=== PATIENT | male | born 1980 | race Caucasian/White ===

== ENCOUNTER 2025-01-09 18:09 | Inpatient (IN) | payer SELFPAY ==
[~2025-01-09] VITALS: Ht 165.1 cm; Wt 169.5 kg
[2025-01-09 19:04] LABS: BASOPHILS % (AUTO) 0.3 % (0.0-2.0); EOSINOPHILS % (AUTO) 0.6 % (1.0-6.0); HEMATOCRIT 46.5 % (41-53); HEMOGLOBIN 14.1 g/dL (13.5-17.5); LYMPHOCYTES # (AUTO) 1.6 K/uL (1.0-4.8); MEAN CORPUSCULAR HEMOGLOBIN 22.9 pg (26.0-34.0); MEAN CORPUSCULAR HGB CONC 30.4 G/dL (31.0-37.0); MEAN CORPUSCULAR VOLUME 76 fL (80-100); MONOCYTES # (AUTO) 0.8 K/uL (0.1-1.0); MONOCYTES % (AUTO) 8.5 % (2.0-9.0); NEUTROPHILS # (AUTO) 7.1 K/uL (1.8-7.7); NEUTROPHILS % (AUTO) 73.6 % (40.0-70.0); PLATELET COUNT (AUTO) 251 K/uL (150-450); RED BLOOD CELL COUNT(AUTO) 6.16 MIL/uL (4.50-5.90); RED CELL DISTRIBUTION WIDTH 17.5 % (11.5-14.5); WHITE BLOOD COUNT (AUTO) 9.6 K/uL (4.5-11.0)
[2025-01-09 19:12] LABS: CALCIUM, TOTAL 8.3 mg/dL (8.8-10.5); CARBON DIOXIDE 39 mmol/L (22-29); CHLORIDE 101 mmol/L (98-107); CREATININE 0.79 mg/dL (0.60-1.30); GLOMERULAR FILTR. RATE CALC > 60 mL/min (>60); GLUCOSE,RANDOM 83 mg/dL (70-110); POTASSIUM 3.9 mmol/L (3.5-5.1); SODIUM SERUM 137 mmol/L (136-145); UREA NITROGEN, BLOOD 15 mg/dL (7-18)
[2025-01-09 19:16] LABS: ALBUMIN 2.6 g/dL (3.4-5.0); ANION GAP 0 mmol/L (8-16); BILIRUBIN,DIRECT 0.3 mg/dL (0.00-0.20); BILIRUBIN,TOTAL 0.7 mg/dL (0.1-1.0); D-DIMER 0.58 mg/L FEU (0.00-0.50); PROTHROMBIN TIME 11.8 SEC (9.4-11.6); TOTAL PROTEIN, SERUM 7.9 g/dL (6.4-8.2)
[2025-01-09 19:21] LABS: TROPONIN I-HIGH SENSITIVITY 16 ng/L (<76)
[2025-01-09 19:22] LABS: PLATELET MORPHOLOGY COMMENT LARGE PLTS PRESENT; RBC MORPHOLOGY COMMENT ABNORMAL RBC MORPH
[2025-01-09] MEDS ORDERED: 0.9% SODIUM CHLORIDE 10 ML SYRINGE IVP ONE (19:51)
[2025-01-09] MEDS ORDERED: IOHEXOL 350 MG/ML 100 ML VIAL ONE (19:51)
[2025-01-09] MEDS ORDERED: SODIUM CHLORIDE 0.9% 100 ML ONE (19:51)
[2025-01-09 20:38] LABS: ABG BASE EXCESS 11.3 mmol/L (-2.0-3.0); ABG HCO3 31.1 mmol/L (21.0-28.0); ABG METHEMOGLOBIN 0.4 % (0.0-1.5); ABG OXYGEN CONTENT 19.9 mL/dL (15.0-23.0); ABG OXYGEN SATURATION 96.2 % (94.0-98.0); ABG OXYHEMOGLOBIN 93.9 % (94.0-98.0); PO2, ARTERIAL BG 93.9 mmHg (83.0-108.0); SOURCE, BLOOD GAS ARTERIAL
[2025-01-09 20:39] LABS: ABG PCO2 90 mmHg (32.0-48.0); ALLEN TEST, BLOOD GAS POS; SITE, BLOOD GAS RT RADIAL
[2025-01-09 20:40] LABS: O2 DEVICE,BLOOD GAS CANNULA (ROOM AIR)
[2025-01-09 20:45] VITALS: PULSE 88; RESP 22; O2SAT 97
[2025-01-09] MEDS: MethylPREDNISolone SOD SUCC 125 MG/2 ML VIAL IVP ONE (20:47)
[2025-01-09] MEDS: IPRATROPIUM BROMIDE 0.5 MG/2.5 ML NEB SOLUTION NEB ONE (21:22)
[2025-01-09] MEDS: ALBUTEROL SULFATE 2.5 MG/0.5 ML NEB SOLUTION NEB ONE (21:22)
[2025-01-09] MEDS: CefTRIAXone 1 GM/DEXTROSE 50 ML IV ONE (21:22)
[2025-01-09] MEDS: AZITHROMYCIN 500 MG/NS 250 ML IV ONE (21:22)
[2025-01-09 21:25] VITALS: PULSE 88; RESP 22; O2SAT 97
[2025-01-09] MEDS ORDERED: ONDANSETRON HCL 4 MG/2 ML VIAL IVP PRN (21:30)
[2025-01-09] MEDS ORDERED: ACETAMINOPHEN 325 MG TABLET PO PRN (21:30)
[2025-01-09] MEDS ORDERED: MORPHINE SULFATE 2 MG/ML SYRINGE IVP PRN (21:30)
[2025-01-09] MEDS ORDERED: ALBUTEROL SULFATE 2.5 MG/0.5 ML NEB SOLUTION NEB PRN (21:30)
[2025-01-09] MEDS ORDERED: IPRATROPIUM BROMIDE 0.5 MG/2.5 ML NEB SOLUTION NEB PRN (21:30)
[2025-01-09] MEDS ORDERED: MAGNESIUM HYDROXIDE SUSPENSION 30 ML UDCUP PO PRN (21:30)
[2025-01-09] MEDS ORDERED: BISACODYL 10 MG RECTAL RECTAL SUPPOSITORY PR PRN (21:30)
[2025-01-09] MEDS ORDERED: HYDROCODONE/ACETAMINOPHEN 5-325 MG TABLET PO PRN (21:30)
[2025-01-09] MEDS ORDERED: ZOLPIDEM TARTRATE 5 MG TABLET PO PRN (21:30)
[2025-01-09 21:40] VITALS: PULSE 91; RESP 22; O2SAT 98
[2025-01-09 21:40] LABS: APPEARANCE,URINE CLEAR (CLEAR); BILIRUBIN,URINE NEGATIVE (NEGATIVE); COLOR,URINE LIGHT YELLOW (YELLOW); GLUCOSE, URINE (UA) NEGATIVE (NEGATIVE); KETONES,URINE NEGATIVE (NEGATIVE); LEUKOCYTE ESTERASE ,URINE NEGATIVE (NEGATIVE); NITRATE,URINE NEGATIVE (NEGATIVE); OCCULT BLOOD,URINE NEGATIVE (NEGATIVE); PROTEIN,URINE NEGATIVE (NEGATIVE); UROBILINOGEN,URINE <=1.0 mg/dL (<=1.0)
[2025-01-09 23:32] VITALS: BP 154/103; PULSE 86; RESP 23; TEMP 97.7; O2SAT 93
[2025-01-10] VITALS (15 sets, daily range): BP systolic 95–158; BP diastolic 40–104; PULSE 72–103; RESP 17–32; TEMP 97.3–98.8; O2SAT 93–99
[2025-01-10] MEDS: HEPARIN SODIUM,PORCINE 5,000 UNITS/ML VIAL SQ SCH (01:26)
[2025-01-10] MEDS: MethylPREDNISolone SOD SUCC 125 MG/2 ML VIAL IVP SCH ×2 (01:26→17:40)
[2025-01-10] MEDS: IPRATROPIUM BROMIDE 0.5 MG/2.5 ML NEB SOLUTION NEB SCH (03:03)
[2025-01-10] MEDS: ALBUTEROL SULFATE 2.5 MG/0.5 ML NEB SOLUTION NEB SCH (03:04)
[2025-01-10 06:32] LABS: BASOPHILS % (AUTO) 0.1 % (0.0-2.0); EOSINOPHILS % (AUTO) 0 % (1.0-6.0); HEMATOCRIT 48.5 % (41-53); HEMOGLOBIN 14.5 g/dL (13.5-17.5); LYMPHOCYTES # (AUTO) 0.5 K/uL (1.0-4.8); LYMPHOCYTES % (AUTO) 5.4 % (22.0-44.0); MEAN CORPUSCULAR HEMOGLOBIN 23.1 pg (26.0-34.0); MEAN CORPUSCULAR VOLUME 77 fL (80-100); MONOCYTES # (AUTO) 0.1 K/uL (0.1-1.0); NEUTROPHILS # (AUTO) 8.7 K/uL (1.8-7.7); PLATELET COUNT (AUTO) 253 K/uL (150-450); RED BLOOD CELL COUNT(AUTO) 6.29 MIL/uL (4.50-5.90); RED CELL DISTRIBUTION WIDTH 17.8 % (11.5-14.5); WHITE BLOOD COUNT (AUTO) 9.3 K/uL (4.5-11.0)
[2025-01-10 06:59] LABS: ANION GAP 1 mmol/L (8-16); CALCIUM, TOTAL 8.4 mg/dL (8.8-10.5); CARBON DIOXIDE 37 mmol/L (22-29); CHLORIDE 102 mmol/L (98-107); CREATININE 0.93 mg/dL (0.60-1.30); GLOMERULAR FILTR. RATE CALC > 60 mL/min (>60); GLUCOSE,RANDOM 150 mg/dL (70-110); POTASSIUM 4.8 mmol/L (3.5-5.1); SODIUM SERUM 140 mmol/L (136-145); UREA NITROGEN, BLOOD 13 mg/dL (7-18)
[2025-01-10 07:01] LABS: NEUTROPHILS % (AUTO) 93.5 % (40.0-70.0)
[2025-01-10 08:12] LABS: RBC MORPHOLOGY COMMENT ABNORMAL RBC MORPH
[2025-01-10] MEDS: DOCUSATE SODIUM 100 MG CAPSULE PO SCH (09:00)
[2025-01-10] MEDS: BENZONATATE 100 MG CAPSULE PO SCH (09:10)
[2025-01-10] MEDS: PANTOPRAZOLE SODIUM 40 MG DR TABLET PO SCH (09:11)
[2025-01-10] MEDS: GuaiFENesin SR 600 MG ER TABLET PO SCH (09:11)
[2025-01-11] VITALS (13 sets, daily range): BP systolic 109–147; BP diastolic 61–91; PULSE 77–101; RESP 18–25; TEMP 97.3–98.1; O2SAT 85–100
[2025-01-12 02:18] VITALS: PULSE 92; RESP 20; O2SAT 96
[2025-01-12 02:33] VITALS: PULSE 93; RESP 20; O2SAT 96
[2025-01-12 04:12] VITALS: BP 122/76; PULSE 68; RESP 19; TEMP 97.2; O2SAT 94
[2025-01-12 06:45] LABS: ANION GAP 1 mmol/L (8-16); CALCIUM, TOTAL 8.3 mg/dL (8.8-10.5); CARBON DIOXIDE 39 mmol/L (22-29); CHLORIDE 102 mmol/L (98-107); CREATININE 0.75 mg/dL (0.60-1.30); GLOMERULAR FILTR. RATE CALC > 60 mL/min (>60); GLUCOSE,RANDOM 144 mg/dL (70-110); POTASSIUM 4.2 mmol/L (3.5-5.1); SODIUM SERUM 142 mmol/L (136-145); UREA NITROGEN, BLOOD 17 mg/dL (7-18)
[2025-01-12 07:00] VITALS: PULSE 86; RESP 20; O2SAT 94
[2025-01-12 07:04] LABS: BASOPHILS % (AUTO) 0.1 % (0.0-2.0); EOSINOPHILS % (AUTO) 0 % (1.0-6.0); HEMATOCRIT 48.2 % (41-53); HEMOGLOBIN 14.6 g/dL (13.5-17.5); LYMPHOCYTES # (AUTO) 0.6 K/uL (1.0-4.8); LYMPHOCYTES % (AUTO) 4.6 % (22.0-44.0); MEAN CORPUSCULAR HEMOGLOBIN 22.9 pg (26.0-34.0); MEAN CORPUSCULAR HGB CONC 30.3 G/dL (31.0-37.0); MEAN CORPUSCULAR VOLUME 76 fL (80-100); MONOCYTES # (AUTO) 0.5 K/uL (0.1-1.0); MONOCYTES % (AUTO) 3.7 % (2.0-9.0); NEUTROPHILS # (AUTO) 11.2 K/uL (1.8-7.7); PLATELET COUNT (AUTO) 243 K/uL (150-450); RED BLOOD CELL COUNT(AUTO) 6.36 MIL/uL (4.50-5.90); RED CELL DISTRIBUTION WIDTH 17.6 % (11.5-14.5); WHITE BLOOD COUNT (AUTO) 12.3 K/uL (4.5-11.0)
[2025-01-12 07:07] LABS: NEUTROPHILS % (AUTO) 91.6 % (40.0-70.0)
[2025-01-12 07:08] LABS: RBC MORPHOLOGY COMMENT ABNORMAL RBC MORPH
[2025-01-12 08:00] VITALS: BP 139/85; PULSE 110; PULSE 81; RESP 18; RESP 20; TEMP 97.8; O2SAT 94; O2SAT 96
[2025-01-12] MEDS ORDERED: ALBU18HF12 IH (10:54)
[2025-01-12] MEDS ORDERED: PRED-554 PO (10:54)
[2025-01-12 12:00] VITALS: BP 141/74; PULSE 88; RESP 20; TEMP 97.9; O2SAT 89
== END 2025-01-12 14:00 | disposition home or self-care (01) | DRG 189 ==
LOC: EMS 18:13 → EDH 21:30 → 5S 23:19
PROVIDERS: ADMIT Internal Medicine; ATTEND Internal Medicine
PROC: 5A09357 Assistance with Respiratory Ventilation, Less than 24 Consecutive Hours, Continuous Positive Airway Pressure (ICD-10-PCS; principal; 2025-01-10)
PROC: 5A0935A Assistance with Respiratory Ventilation, Less than 24 Consecutive Hours, High Flow/Velocity Cannula (ICD-10-PCS; 2025-01-10)
PROC: 5A09357 Assistance with Respiratory Ventilation, Less than 24 Consecutive Hours, Continuous Positive Airway Pressure (ICD-10-PCS; 2025-01-11)
DX: J96.22 Acute and chronic respiratory failure with hypercapnia (principal); E87.29 Other acidosis; Z68.44 Body mass index [BMI] 60.0-69.9, adult; E66.2 Morbid (severe) obesity with alveolar hypoventilation; J44.9 Chronic obstructive pulmonary disease, unspecified; I10 Essential (primary) hypertension
CPT/HCPCS: 71045; 71275; 80048; 80076; 81003; 82550; 82805; 83880; 84484; 85025; 85379; 85610; 85730; 87040; 93005; 94060; 94640; 94660; 99291; J0456; J0696; J1644; J2919; J7050; 36415-L1; 36415-TC; J7613

== ENCOUNTER 2025-01-14 13:05 | Inpatient (IN) | payer SELFPAY ==
[~2025-01-14] VITALS: Ht 165.1 cm; Wt 168.4 kg
[~2025-01-14 13:05] MED LIST: ALBU18HF12 IH; PRED-554 PO
[2025-01-14 14:25] VITALS: PULSE 81; RESP 20; O2SAT 97
[2025-01-14] MEDS: IPRATROPIUM BROMIDE 0.5 MG/2.5 ML NEB SOLUTION NEB ONE (14:25)
[2025-01-14] MEDS: ALBUTEROL SULFATE 2.5 MG/0.5 ML NEB SOLUTION NEB ONE (14:25)
[2025-01-14 14:40] VITALS: PULSE 84; RESP 20; O2SAT 98
[2025-01-14 14:40] LABS: COVID AG,FIA SOURCE NASAL SWAB
[2025-01-14] MEDS: ACETAMINOPHEN 500 MG TABLET PO ONE (14:42)
[2025-01-14 14:43] LABS: PLATELET COUNT (AUTO) 199 K/uL (150-450); RED BLOOD CELL COUNT(AUTO) 6.22 MIL/uL (4.50-5.90); RED CELL DISTRIBUTION WIDTH 17.8 % (11.5-14.5); WHITE BLOOD COUNT (AUTO) 8.8 K/uL (4.5-11.0)
[2025-01-14 14:46] LABS: CALCIUM, TOTAL 8.0 mg/dL (8.8-10.5); CREATININE 0.84 mg/dL (0.60-1.30); GLOMERULAR FILTR. RATE CALC > 60 mL/min (>60); GLUCOSE,RANDOM 90 mg/dL (70-110); SODIUM SERUM 139 mmol/L (136-145); UREA NITROGEN, BLOOD 19 mg/dL (7-18)
[2025-01-14 14:50] LABS: ASPARTATE AMINOTRANSFERASE 104.0 U/L (15-37); CREATINE KINASE, TOTAL ONLY 31.0 U/L (39-308); TOTAL PROTEIN, SERUM 6.6 g/dL (6.4-8.2)
[2025-01-14 14:55] LABS: TROPONIN I-HIGH SENSITIVITY 13 ng/L (<76)
[2025-01-14 14:58] LABS: ABG BASE EXCESS 12.1 mmol/L (-2.0-3.0); ABG CARBOXYHEMOGLOBIN 2.4 % (0.5-1.5); ABG HCO3 34.1 mmol/L (21.0-28.0); ABG METHEMOGLOBIN 0.4 % (0.0-1.5); ABG OXYGEN CONTENT 20.1 mL/dL (15.0-23.0); ABG OXYGEN SATURATION 98.5 % (94.0-98.0); ABG OXYHEMOGLOBIN 95.7 % (94.0-98.0); ABG PCO2 49 mmHg (32.0-48.0); ABG PH 7.477 (7.350-7.450); ABG TOTAL HEMOGLOBIN 14.9 G/dL (13.5-17.5); ALLEN TEST, BLOOD GAS Positive; FLOW, BLOOD GAS 6.00 L/min (0.00-15.00); FRACTIONATED INSPIRED OXYGEN 44.0 % (21-100.0); PO2, ARTERIAL BG 97.8 mmHg (83.0-108.0); SITE, BLOOD GAS RT RADIAL; SOURCE, BLOOD GAS ARTERIAL; TEMPERATURE, FAHRENHEIT, BG 98.0 FAHREN (96.0-98.6)
[2025-01-14 14:59] LABS: O2 DEVICE,BLOOD GAS AEROSOL MASK (ROOM AIR)
[2025-01-14 15:07] LABS: INFLUENZA TYPE A NEGATIVE FOR TYPE A (NEGATIVE); INFLUENZA TYPE B NEGATIVE FOR TYPE B (NEGATIVE); SARS-COV2 (COVID) ANTIGEN,FIA Negative (Negative)
[2025-01-14 15:11] LABS: PLATELET MORPHOLOGY COMMENT LARGE PLTS PRESENT; RBC MORPHOLOGY COMMENT ABNORMAL RBC MORPH
[2025-01-14] MEDS ORDERED: ACETAMINOPHEN 325 MG TABLET PO PRN (15:45)
[2025-01-14] MEDS: HEPARIN SODIUM,PORCINE 5,000 UNITS/ML VIAL SQ SCH (16:00)
[2025-01-14 18:28] VITALS: BP 143/85; PULSE 96; RESP 19; TEMP 98.1; O2SAT 95
[2025-01-14 18:35] VITALS: BP 143/85; PULSE 96; RESP 20; TEMP 98.1; O2SAT 95
[2025-01-14 20:43] VITALS: BP 121/70; PULSE 90; RESP 20; TEMP 98.1; O2SAT 97
[2025-01-15] VITALS (11 sets, daily range): BP systolic 116–139; BP diastolic 66–89; PULSE 64–92; RESP 12–20; TEMP 97.5–98.4; O2SAT 95–100
[2025-01-15 07:03] LABS: PLATELET COUNT (AUTO) 192 K/uL (150-450); RED BLOOD CELL COUNT(AUTO) 6.47 MIL/uL (4.50-5.90); RED CELL DISTRIBUTION WIDTH 17.2 % (11.5-14.5); WHITE BLOOD COUNT (AUTO) 7.9 K/uL (4.5-11.0)
[2025-01-15 07:11] LABS: CALCIUM, TOTAL 8.4 mg/dL (8.8-10.5); CREATININE 0.65 mg/dL (0.60-1.30); GLOMERULAR FILTR. RATE CALC > 60 mL/min (>60); GLUCOSE,RANDOM 85 mg/dL (70-110); SODIUM SERUM 143 mmol/L (136-145); UREA NITROGEN, BLOOD 18 mg/dL (7-18)
[2025-01-15 07:37] LABS: RBC MORPHOLOGY COMMENT ABNORMAL RBC MORPH
[2025-01-15] MEDS: FUROSEMIDE 20 MG/2 ML VIAL IVP SCH (09:23)
[2025-01-15 16:59] LABS: PH,URINE DRUG SCREEN 8.0 (5.0-8.0)
[2025-01-15 17:05] LABS: ALCOHOL, URINE DRUG SCREEN NEGATIVE (NEGATIVE); AMPHET/METH SCREEN,URINE NEGATIVE (NEGATIVE); BARBITURATE SCREEN, URINE NEGATIVE (NEGATIVE); CANNABINOID SCREEN,URINE NEGATIVE (NEGATIVE); COCAINE SCREEN,URINE NEGATIVE (NEGATIVE); METHADONE SCREEN, URINE NEGATIVE (NEGATIVE)
[2025-01-16] VITALS (8 sets, daily range): BP systolic 116–139; BP diastolic 69–94; PULSE 60–94; RESP 16–23; TEMP 97.5–98.4; O2SAT 93–100
[2025-01-16] MEDS ORDERED: FURO20TA5 PO (14:39)
[2025-01-16] MEDS: FUROSEMIDE 20 MG TABLET PO SCH (21:24)
[2025-01-17] VITALS (7 sets, daily range): BP systolic 117–123; BP diastolic 48–84; PULSE 71–94; RESP 16–28; TEMP 97.5–98.6; O2SAT 92–98
[2025-01-17 07:01] LABS: PLATELET COUNT (AUTO) 207 K/uL (150-450); RED BLOOD CELL COUNT(AUTO) 6.53 MIL/uL (4.50-5.90); RED CELL DISTRIBUTION WIDTH 17.4 % (11.5-14.5); WHITE BLOOD COUNT (AUTO) 10.1 K/uL (4.5-11.0)
[2025-01-17 07:12] LABS: CALCIUM, TOTAL 8.2 mg/dL (8.8-10.5); CREATININE 0.73 mg/dL (0.60-1.30); GLOMERULAR FILTR. RATE CALC > 60 mL/min (>60); GLUCOSE,RANDOM 84 mg/dL (70-110); SODIUM SERUM 138 mmol/L (136-145); UREA NITROGEN, BLOOD 17 mg/dL (7-18)
[2025-01-17 08:12] LABS: RBC MORPHOLOGY COMMENT ABNORMAL RBC MORPH
== END 2025-01-17 14:18 | disposition home or self-care (01) | DRG 189 ==
LOC: EMS 13:05 → EDH 15:41 → 5N 18:08
PROVIDERS: ADMIT Internal Medicine; ATTEND Internal Medicine
PROC: 5A09357 Assistance with Respiratory Ventilation, Less than 24 Consecutive Hours, Continuous Positive Airway Pressure (ICD-10-PCS; principal; 2025-01-15)
PROC: 5A09357 Assistance with Respiratory Ventilation, Less than 24 Consecutive Hours, Continuous Positive Airway Pressure (ICD-10-PCS; 2025-01-16)
DX: J96.01 Acute respiratory failure with hypoxia (principal); E66.2 Morbid (severe) obesity with alveolar hypoventilation; E87.29 Other acidosis; Z68.44 Body mass index [BMI] 60.0-69.9, adult; J96.02 Acute respiratory failure with hypercapnia; Z20.822 Contact with and (suspected) exposure to COVID-19; Z79.899 Other long term (current) drug therapy; Z91.199 Patient's noncompliance with other medical treatment and regimen due to unspecified reason
CPT/HCPCS: 71045; 80048; 80076; 80307; 82550; 82805; 83735; 83880; 84484; 85025; 87081; 87804; 93005; 93306; 94640; 94660; 94760; 99285; J1644; J1940; 36415-L1; 36415-TC; J7512; J7613; Z7610